=== PATIENT | male | born 1940 | race Caucasian/White ===

== ENCOUNTER → 2017-05-22 | Outpatient (CLI) | payer OTHER | LOC: SLEEPLAB 05:32 | DX: G47.30 Sleep apnea, unspecified (principal) ==

== ENCOUNTER → 2019-11-14 | Outpatient (CLI) | payer OTHER, BC | LOC: SJCVC 10:49 | DX: I45.2 Bifascicular block (principal); R94.31 Abnormal electrocardiogram [ECG] [EKG]; I10 Essential (primary) hypertension; E78.5 Hyperlipidemia, unspecified; G47.33 Obstructive sleep apnea (adult) (pediatric); I65.23 Occlusion and stenosis of bilateral carotid arteries; Z99.89 Dependence on other enabling machines and devices; Z79.82 Long term (current) use of aspirin; Z79.899 Other long term (current) drug therapy; Z87.891 Personal history of nicotine dependence ==

== ENCOUNTER → 2020-01-22 | Outpatient (CLI) | payer OTHER, BC | LOC: SJCVCIMAG 10:31 | PROVIDERS: ATTEND Internal Medicine Cardiovascular Disease | DX: Z01.818 Encounter for other preprocedural examination (principal); I35.1 Nonrheumatic aortic (valve) insufficiency; I45.2 Bifascicular block; I77.810 Thoracic aortic ectasia; I65.23 Occlusion and stenosis of bilateral carotid arteries; I10 Essential (primary) hypertension; I25.10 Atherosclerotic heart disease of native coronary artery without angina pectoris; E78.5 Hyperlipidemia, unspecified; Z79.82 Long term (current) use of aspirin; Z79.899 Other long term (current) drug therapy ==

== ENCOUNTER → 2020-01-31 | Outpatient (CLI) | payer OTHER, BC ==
[~2020-01-31] VITALS: Ht 165.1 cm; Wt 108.9 kg
[~2020-01-31] MED LIST: ALPRAZOLAM 0.0.25 M1 PO; ASPIR 8181 M1 PO; CRESTOR10 MG PO; DIOVAN160 MG PO; HYDROCHLOROTHIA25 M2 PO; PAXIL40 MG PO
--- NOTE | ~2020-01-31 | H ---
[facility] [place] [address] [place] [address] HISTORY AND PHYSICAL Name: STACI CANDELARIA Room #: REG OSMANY RodriguezEliotJonathon.#: [id number] Admission: 01/31/20 Attend Phys: Julian Pinzon MD, Discharge: Date of : 42 Report #: [id number] THIS REPORT FOR: cc: Saeid Michael MD,Julian Ballesteros MD, MD FAC ~ CC: Julian Michael MD DATE OF SERVICE: 01/31/2020 SHORT STAY SUMMARY The patient is a 79-year-old male who was admitted for cardiac catheterization today. He was seen back in October and there was question of whether he had some mild decrease in exercise tolerance and was considering a knee replacement surgery. Subsequently, underwent nuclear stress testing, which suggested a small to moderate size area in the inferior lateral wall, possibly circumflex or posterior lateral branch of the right coronary artery. Slight decrease in exercise tolerance. Otherwise, really no anginal type symptoms. He has been fairly active. He has been compliant with his medications. He does not have documented coronary artery disease otherwise. No prior catheterization. He has mild carotid plaquing from a remote carotid Doppler. No PND, orthopnea or peripheral edema. CURRENT MEDICATIONS: Xanax p.r.n., baby aspirin, HCTZ, Paxil, rosuvastatin 10 and valsartan 160. PAST MEDICAL HISTORY: Positive for hypertension, hypercholesterolemia, recurrent bronchitis, remote tobacco use, social alcohol use. SOCIAL HISTORY: He is . He is retired. Social drinker. No tobacco. Multiple children. ALLERGIES: No known drug allergies. FAMILY HISTORY: Positive for aortic disease and cancer. No premature CAD. REVIEW OF SYSTEMS: Negative except for some occasional hesitancy, nocturia. PHYSICAL EXAMINATION: VITAL SIGNS: Blood pressure 136/70, pulse 60. HEENT: Eyes reveal xanthelasmas. Pharynx is clear. NECK: Shows preserved upstrokes without JVD or bruits. LUNGS: Clear. [facility] [address] [place] [address] HISTORY AND PHYSICAL Name: STACI CANDELARIA Room #: REG [facility] Kaya#: [id number] Admission: 01/31/20 Attend Phys: Julian Pinzon MD, Discharge: Date of : 42 Report #: [id number] CARDIOVASCULAR: Regular rate and rhythm, S1, S2. No murmur or gallop. ABDOMEN: Soft. No HSM or abdominal bruit. EXTREMITIES: Reveal no edema. Distal pulses slightly diminished, but intact. NEUROLOGIC: Nonfocal. SKIN: Warm and dry without xanthoma or ulcer. MUSCULOSKELETAL: Generalized arthritic changes. HOSPITAL COURSE: The patient subsequently underwent cardiac catheterization. 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 Mild diffuse disease distally. LAD is well preserved as is the left main. There is a branch of the ____ that has mild disease, but no occlusive disease that would warrant intervention. LV function preserved. He is pain free. Vascular closure was utilized. We will observe him in the holding area and then discharged home. DISCHARGE DIAGNOSES: 1. Mild coronary artery disease as described above. 2. Hypertension. 3. Hypercholesterolemia. 4. Degenerative joint disease. RECOMMENDATIONS AND PLAN: We will discharge home. We will continue current medications. We will continue to be aggressive with the blood pressure and lipid control. No lifting for 48 hours. No lying in a tub, Jacuzzi or hewitt for 5 days. Followup will be arranged in 6 months. Thank you for asking me to assist in the care of this patient. By: 0900 0923 Julian Pinzon MD, FACC /nt
[2020-01-31 07:17] VITALS: BP 130/72
[2020-01-31 07:32] LABS: HEMATOCRIT 41.4 % (42.0-52.0); MCH 30.2 pg (26.0-34.0); MCHC 33.8 g/dL (28.0-37.0); MCV 89.2 fL (80.0-100.0); RBC 4.64 mil/uL (4.50-6.00); RDW 13.6 % (10.5-14.5); WBC 5.5 thou/uL (4.0-11.0)
[2020-01-31 07:52] LABS: CALCIUM 8.5 mg/dL (8.5-10.1); CREATININE 1.3 mg/dL (0.7-1.3); POTASSIUM 4.6 mmol/L (3.5-5.1)
--- NOTE | 2020-01-31 09:24 | EKG ---
[facility] [address] [place] [address] ELECTROCARDIOGRAM REPORT Name: STACI CANDELARIA Room #: REG [facility].#: [id number] Admission: 01/31/20 Attend Phys: Julian Pinzon MD, Discharge: Date of : 42 Report #: [id number] THIS REPORT FOR: cc: Saeid Michael MD, Harish MD Lundgren,Demetrius Shannon MD [facility] ~ THIS REPORT FOR: //name// [facility] Test Date: 2020-01-31 Test Time: 07:17:33 Pat Name: STACI CANDELARIA Department: Room: Gender: M Storeperson: SBNATACHA : 1940 Requested By: Julian Pinzon Order Number: [id number] MD: Demetrius Brooks Measurements Intervals [place] Rate: 65 P: 26 HI: 249 QRS: -62 QRSD: 167 T: 37 QT: 475 QTc: 494 Interpretive Statements Sinus rhythm Prolonged HI interval RBBB and LAFB Probable left ventricular hypertrophy No previous ECG available for comparison Electronically Signed On 01-31-2020 9:24:23 CDT by Demetrius Brooks [email or web address] <ELECTRONICALLY SIGNED> By: Demetrius Brooks MD, [facility] 01/31/20 0924 6 6 Demetrius Brooks MD, [facility] /EPI
--- NOTE | 2020-01-31 11:06 | CATHLAB ---
[facility] [address] [address] INVASIVE PROCEDURE REPORT Name: STACI CANDELARIA Room #: REG OSMANY RoseEliot#: [id number] Admission: 01/31/20 Attend Phys: Julian Pinzon MD, Discharge: Date of : 42 Report #: [id number] THIS REPORT FOR: cc: Saeid Michael MD, Harish MD Mancuso, Gerald M. MD [facility] ~ APPROVED REPORT Study performed: 01/31/2020 07:38:56 Patient Details The patient is a 79 year-old male Event Personnel Julian Pinzon [employer], Ernesto Schulte RN, Verona Calderon RTR Francisco Kenney Sherra RTR Monitor, Kevyn Wilkins RTR Monitor Procedures Performed Art Access - R femoral artery* Left Heart Cath w/or w/o Coronaries [id number] [facility] [id number] Initial Mod Sed Same Phys/QHP [facility] [id number] Mod Sed Same Phys/QHP [id number] Hemostasis w/ Mynx Indication Chest pain Procedure Narrative The Right Groin^ was infiltrated with 1% Lidocaine subcutaneous anesthesia. A PINNACLE 6FR Sheath #[id number] sheath was inserted into the RFA^. Coronary angiography was performed using coronary diagnostic catheters. The right coronary system was accessed and visualized with a JR4 catheter. The left coronary system was accessed and visualized with a JL4 catheter. The left ventricle was accessed and visualized with a PIGTAIL catheter. An aortogram of the abdominal aorta was performed. Closure device was deployed with a 6 Fr MYNXGRIP 6/7F #[id number]. The patient tolerated the procedure well and there were no complications associated with the procedure. There was no hematoma. Intraoperative Conscious Sedation Sedation start time: 834 Case end Time: 904 Fentanyl 50 mcg Versed 1 mg [facility] [place] [address] INVASIVE PROCEDURE REPORT Name: STACI CANDELARIA Room #: IRAIDA Kirkpatrick#: [id number] Admission: 01/31/20 Attend Phys: Julian Pinzon, Discharge: Date of : 42 Report #: [id number] Fluoro Time: 3.00 minutes Dose: DAP 44535.10 cGycm2 1365 mGy Contrast Type and Amount: Visipaque 115 ml Hemodynamics The aortic pressure is 123/65 mmHg with a mean of 86 mmHg. The left ventricular pressure is 148/10 mmHg with a mean of mmHg. The left ventricular end diastolic pressure is 20 mmHg. Conclusion 1. Normal left ventricular size and systolic function EF 55 to 60% #2 abdominal aorta revealing mild aortic ectasia no aneurysm brisk distal flow is noted. #3 left main with mild disease giving rise to LAD and circumflex #4 LAD extends around the apex. Mild diffusely diseased distally no occlusive disease #5 circumflex OM nondominant small distal branches attenuated no indication for intervention. 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 There is an eccentric and tortuous proximal segment which may represent a 30 to 40% irregularity otherwise the vessel is preserved distally. Anatomically dominant. Recommendations plan: Continue aggressive risk factor modification. There is no indication for coronary intervention. Will be discharged following protocol. <ELECTRONICALLY SIGNED> By: Julian Pinzon MD, [facility] 01/31/20 1106 110 110 Julian Pinzon MD, FAC /INF
== END | disposition home or self-care (01) ==
LOC: CATH 06:31
PROVIDERS: ATTEND Internal Medicine Cardiovascular Disease
DX: R07.9 Chest pain, unspecified (principal); I25.10 Atherosclerotic heart disease of native coronary artery without angina pectoris; I10 Essential (primary) hypertension; E78.5 Hyperlipidemia, unspecified; Z98.890 Other specified postprocedural states; Z79.899 Other long term (current) drug therapy; Z87.891 Personal history of nicotine dependence; Z79.82 Long term (current) use of aspirin